=== PATIENT | female | born 1990 | race Caucasian/White ===

== ENCOUNTER → 2019-12-31 16:37 | Outpatient (BNVA) | payer MEDICAID, SELFPAY | PROVIDERS: Family Provider Nurse Practitioner Family; Visit Provider Nurse Practitioner | DX: R50.9 Fever, unspecified (principal); N39.0 Urinary tract infection, site not specified | CPT/HCPCS: 80053; 81000 ==

== ENCOUNTER 2020-01-01 08:42 | Emergency (ER) | payer MEDICAID, SELFPAY ==
[2020-01-01 08:45] VITALS: BP 139/88; PULSE 113; RESP 18; TEMP 37.2; O2SAT 99; BMI 35.4
--- NOTE | 2020-01-01 08:56 | W.ED.GENADLT ---
HPI - General Adult General: Chief complaint: Nausea/Vomiting/Diarrhea Stated complaint: fever, n/v Time Seen by Provider: 01/01/20 08:44 Source: patient Mode of arrival: ambulatory Limitations: no limitations History of Present Illness: HPI narrative: Patient is a 29-year-old female who presents to ED today with a complaint of a headache, nausea and vomiting that began yesterday, body aches, difficulty with urination, dysuria, and fevers of up to 101.5. Having very mild abdominal pain. Symptoms initially began on Sunday. She was apparently seen at urgent care yesterday and diagnosed with UTI and placed on Macrobid. Patient states symptoms have not improved. She is reporting normal bowel movements. She is not having a rash. No recent tick bites. No sick contacts. Onset (ago): day(s) Associated symptoms: Reports headache(s) and nausea; Deny chest pain, dyspnea, rash, palpitations, syncope or vomiting Review of Systems Const: Reports: fever(s), body aches and change in appetite; Denies: change in weight Eyes: Denies: change in vision, blurry vision, photophobia, floaters or seeing flashes ENMT: Denies: throat pain or odynophagia Card: Denies: chest pain, palpitations, irregular heart rhythm, edema, lightheadedness, syncope, pre-syncope or dyspnea on exertion Resp: Denies: dyspnea, productive cough or chest congestion GI: Reports: abdominal pain and nausea; Denies: vomiting, heartburn, diarrhea, change in bowel habits, change in stool character, hematochezia, melena or white/light colored stool : Reports: flank pain, difficulty voiding, dysuria, urinary frequency and urinary urgency; Denies: urinary hesitancy, dribbling, urinary incontinence, hematuria, vaginal odor, vaginal bleeding or vaginal discharge Musc: Denies: neck pain, back pain, extremity pain, extremity swelling, joint pain or joint swelling Skin/Breast: Denies: rash Neuro: Reports: headache(s); Denies: numbness in extremities, weakness in extremities or sensory changes PFS ED PFSH: Social History Smoking and tobacco status: never smoked Female Reproductive History: Date of last menstrual period: 12/08/19 Physical Exam Const: COMMON NORMALS: no acute distress, patient oriented x3, no limitations and alert NUTRITIONAL APPEARANCE: obese HENMT: COMMON NORMALS: normocephalic and atraumatic HEAD & SCALP: normocephalic and atraumatic Resp: COMMON NORMALS: normal respiratory effort and clear to auscultation bilaterally AUSCULTATION: clear to auscultation bilaterally Cardio: COMMON NORMALS: regular rate and regular rhythm RATE: regular rate RHYTHM: regular rhythm GI: COMMON NORMALS: Normal to inspection, nondistended, normoactive bowel sounds present, Soft to palpation, No hepatosplenomegaly present and no masses PALPATION: Yes Soft to palpation, Yes Tenderness to palpation present (GI) (mild diffusely; non-surgical abdominal exam) and Yes No hepatosplenomegaly present : BLADDER/KIDNEY EXAM: Yes CVA tenderness (very mild R) Back/Pelvis: COMMON NORMALS: thoracic and lumbar spine normal to inspection, no thoracic nor lumbar tenderness and thoraco-lumbar ROM normal GENERAL BACK: Yes CVA tenderness (very mild R) Extremity: COMMON NORMALS: normal to inspection GENERAL: Yes normal exam except as noted Neuro: COMMON NORMALS: patient oriented x3 SENSORIUM/ORIENTATION: Yes alert Skin: COMMON NORMALS: no rashes or lesions noted GENERAL SKIN EXAM: no rashes or lesions noted Course Reevaluation(s): Reevaluation #1: severe delay in pts care as labs were ordered at 8:55 and by 10:25 they still have not been drawn yet. Vital Signs: Vital signs: Vital Signs Temperature 97.8 F 01/01/20 12:42 Pulse Rate 104 H 01/01/20 13:04 Respiratory Rate 18 01/01/20 12:42 Blood Pressure 112/84 01/01/20 13:04 Pulse Oximetry 94 01/01/20 13:04 MDM - General Adult MDM Narrative: Medical decision making narrative: Patient here with several nonspecific complaints including headache, body aches, fevers, nausea/vomiting, and some possible UTI-like symptoms. Patient clinically appears well. She has a normal physical examination apart from some mild diffuse abdominal pain. Her abdomen is nonsurgical. Labs revealing leukopenia, thrombocytopenia, mild hypokalemia, and elevated liver enzymes. I did elect for a gallbladder ultrasound that was normal. Patient's UA is not overly suspicious for a UTI as she is negative nitrates, negative leuks, and only has 0-4 WBCs and 1+ bacteria-will culture. She does tell me she recently finished a course of Bactrim for a spider bite to her left hip. Patient did have pictures on her phone of the bite. It did look suspicious for a spider bite although I question whether this could have been an erythema migrans lesion and now patient is having tickborne illness symptoms. I am going to go ahead and place her on doxycycline. Recommend close observation of her abdominal pain specifically if the pain worsens and localizes to her right upper quadrant. I will go ahead and obtain COVID testing due to nonspecific symptoms and fevers. Lab Data: Labs: Lab Results 01/01/20 01/01/20 01/01/20 Range/Units 09:00 10:45 10:45 WBC 2.9 L (4.0-10.0) 10^3/ uL RBC 4.22 (4.1-5.3) 10^6/u L Hgb 12.2 (11.5-15.3) g/dL Hct 38.2 (37.0-47.0) % MCV 90.5 (81-99) fL MCH 28.9 (28.0-34.0) pg MCHC 31.9 (30.0-36.0) g/dL RDW 13.6 (12.1-15.1) % Plt Count 76 L (130-400) 10^3/c mm MPV 10.9 H (7.4-10.4) fL Neut % (Auto) 63.0 % Lymph % (Auto) 25.2 % Chambers % (Auto) 8.8 % Eos % (Auto) 0.3 % Baso % (Auto) 0.7 % Neut # (Auto) 1.85 (1.8-7.7) 10^3/u L Lymph # (Auto) 0.7 L (0.8-4.8) 10^3/u L Chambers # (Auto) 0.3 (0.2-0.9) 10^3/u L Eos # (Auto) 0.0 (0.0-0.8) 10^3/u L Baso # (Auto) 0.0 (0.0-0.1) 10^3/u L Nucleated RBC % (a uto) 0 % Nucleated RBCs # 0.0 /100WBC Sodium 136 (136-145) mmol/L Potassium 3.4 L (3.5-5.1) mmol/L Chloride 105 (98-107) mmol/L Carbon Dioxide 20 L (22-29) mmol/L Anion Gap 14.4 (5-19) BUN 9 (6-20) mg/dL Creatinine 0.8 (0.5-0.9) mg/dL GFR Calculation 86.0 L (90-130) mL/min Glucose 102 (65-115) mg/dL Calculated Osmolal ity 278 L (285-295) mOsm/k g Lactic Acid (0.5-2.2) mmol/L Calcium 8.0 L (8.5-10.5) mg/dL Total Bilirubin 0.6 (0.15-1.2) mg/dL AST 64 H (0-32) U/L ALT 77 H (0-33) U/L Alkaline Phosphata se 145 H (35-105) IU/L Total Protein 7.0 (6.6-8.7) g/dL Albumin 3.5 (3.5-5.2) g/dL Globulin 3.5 (1.3-4.6) g/dL Lipase 15 (13-60) U/L HCG, Qual (Negative) Urine Color Dark yellow (Yellow) Urine Appearance Sl hazy (CLEAR) Urine pH 5 (5-7) Ur Specific Gravit y 1.015 (1.005-1.030) Urine Protein 1+ H (Negative) Urine Glucose (UA) Norm (Normal) Urine Ketones 1+ H (Negative) Urine Blood 2+ H (Negative) Urine Nitrate Negative (Negative) Urine Bilirubin 1+ H (NEGATIVE) Urine Urobilinogen 1 H (Negative) mg/dL Ur Leukocyte Mary ase Negative (Negative) Urine RBC 0-4 H (0-2) /hpf Urine WBC 0-4 H (0-5) /hpf Ur Squamous Epith Cells 15-25 H (0-5) Amorphous Sediment Not Reportable Urine Bacteria 1+ H (NONE) 01/01/20 01/01/20 Range/Units 10:45 12:00 WBC (4.0-10.0) 10^3/ uL RBC (4.1-5.3) 10^6/u L Hgb (11.5-15.3) g/dL Hct (37.0-47.0) % MCV (81-99) fL MCH (28.0-34.0) pg MCHC (30.0-36.0) g/dL RDW (12.1-15.1) % Plt Count (130-400) 10^3/c mm MPV (7.4-10.4) fL Neut % (Auto) % Lymph % (Auto) % Chambers % (Auto) % Eos % (Auto) % Baso % (Auto) % Neut # (Auto) (1.8-7.7) 10^3/u L Lymph # (Auto) (0.8-4.8) 10^3/u L Chambers # (Auto) (0.2-0.9) 10^3/u L Eos # (Auto) (0.0-0.8) 10^3/u L Baso # (Auto) (0.0-0.1) 10^3/u L Nucleated RBC % (a uto) % Nucleated RBCs # /100WBC Sodium (136-145) mmol/L Potassium (3.5-5.1) mmol/L Chloride (98-107) mmol/L Carbon Dioxide (22-29) mmol/L Anion Gap (5-19) BUN (6-20) mg/dL Creatinine (0.5-0.9) mg/dL GFR Calculation (90-130) mL/min Glucose (65-115) mg/dL Calculated Osmolal ity (285-295) mOsm/k g Lactic Acid 2.3 H (0.5-2.2) mmol/L Calcium (8.5-10.5) mg/dL Total Bilirubin (0.15-1.2) mg/dL AST (0-32) U/L ALT (0-33) U/L Alkaline Phosphata se (35-105) IU/L Total Protein (6.6-8.7) g/dL Albumin (3.5-5.2) g/dL Globulin (1.3-4.6) g/dL Lipase (13-60) U/L HCG, Qual Negative (Negative) Urine Color (Yellow) Urine Appearance (CLEAR) Urine pH (5-7) Ur Specific Gravit y (1.005-1.030) Urine Protein (Negative) Urine Glucose (UA) (Normal) Urine Ketones (Negative) Urine Blood (Negative) Urine Nitrate (Negative) Urine Bilirubin (NEGATIVE) Urine Urobilinogen (Negative) mg/dL Ur Leukocyte Mary ase (Negative) Urine RBC (0-2) /hpf Urine WBC (0-5) /hpf Ur Squamous Epith Cells (0-5) Amorphous Sediment Urine Bacteria (NONE) Imaging Data^: US gallbladder: Radiologist's impression: [address] [address] Ultrasound Report Signed Patient: Senia Domínguez Unit #: [id number] : 1990 Age/Sex: 29 / F ADM Date: 01/01/20 Loc: ER Room/Bed: Attending Dr: Ordering Provider/Ordering MD: Stephania Tee Date of Service: 01/01/20 Procedure(s): US gall bladder 92016 Accession Number(s): [id number] Report Number: [id number] WS: [id number] Gallbladder ultrasound, 01/01/2020 Clinical Data: abd pain; elevated LFTs Comparison: None. Findings: The gallbladder shows no sludge or stone. The wall measures 0.2 cm with no pericholecystic fluid. The common bile duct is 0.5 cm and there are no intrahepatic ductal abnormalities. Liver shows no cysts, masses or dilated intrahepatic ducts. The pancreas is not obscured by overlying bowel gas and no cyst, pseudocyst, or evidence of pancreatitis is noted. Right kidney measures 8.9 cm and no cyst, masses or hydronephrosis can be seen. The aorta and inferior vena cava show no vascular abnormalities. US/US gall bladder [id number] Impression: Negative gallbladder ultrasound. Dictated By: Charley Rivera MD Signed By: Charley Rivera MD Signed Date/Time: 01/01/20 1159 DD/ 1157 Discharge Plan Discharge Patient Disposition: Home Clinical Impression: Elevated LFTs, General ill feeling Condition: Stable Prescriptions: New doxycycline monohydrate 100 mg capsule 100 mg PO Q12H 10 Days Qty: 20 RF: 0 No Action sertraline [Zoloft] 100 mg tablet 100 mg PO DAILY RF: 0 nitrofurantoin monohyd/m-cryst [Macrobid] 100 mg capsule 100 mg PO Q12H 7 Days Qty: 14 RF: 0 ondansetron HCl 4 mg tablet 4 mg PO Q8H PRN (Reason: nausea and vomiting) Qty: 20 RF: 0 Tylenol Extra Strength 500 mg Tablet 1,000 mg PO PRN RF: 0 ibuprofen 200 mg Tablet 400 mg PO PRN RF: 0 Discharge Orders: Discharge Order (Routine); Ordered 01/01/20 Ordered By: Stephania Tee Referrals: [facility] [Other] Activity Restrictions/Additional Instructions: As discussed please quarantine until you get results of your COVID testing. Please follow-up with primary care in 3 to 5 days for reevaluation. As discussed your liver enzymes were elevated today. Her gallbladder ultrasound was normal however if you begin experiencing worsening abdominal pain specifically to your right upper abdomen you need to return to the emergency department for further evaluation. Discharge Date/Time: 01/01/20 13:04 Coding Level of Care Code ED [facility] [employer] [facility] for [facility] Osei Exam Comprehensive
[2020-01-01 09:19] VITALS: BP 112/84; PULSE 105; RESP 18; O2SAT 97
[2020-01-01] MEDS: sodium chloride 0.9% 1,000 ML 999 ML IV (09:38)
[2020-01-01 10:01] LABS: Protein Urine 1+ (Negative); Specific Gravity, Urine 1.015 (1.005-1.030); Urine Appearance SL Hazy (CLEAR); Urine Color Dark Yellow (Yellow); pH Urine 5 (5-7)
[2020-01-01 10:02] LABS: Add Urine Microscopic? YES; Bilirubin Urine 1+ (NEGATIVE); Blood Urine 2+ (Negative); Glucose Urine UA Norm (Normal); Ketones Urine 1+ (Negative); Leukocyte Esterase Urine Negative (Negative); Nitrate Urine Negative (Negative); Urobilinogen Urine 1 mg/dL (Negative)
[2020-01-01 10:03] LABS: RBC Urine 0-4 /hpf (0-2); Squamous Epithelial Cell Urine 15-25 (0-5); WBC Urine 0-4 /hpf (0-5)
[2020-01-01 10:04] LABS: Add Urine Culture? No; Bacteria Urine 1+
[2020-01-01 10:42] VITALS: BP 112/84; PULSE 104; RESP 18; O2SAT 99
[2020-01-01 10:54] LABS: Basophils % 0.7 %; Eosinophils % 0.3 %; Hematocrit 38.2 % (37.0-47.0); Hemoglobin 12.2 g/dL (11.5-15.3); Lymphocytes # 0.7 10^3/uL (0.8-4.8); Lymphocytes % 25.2 %; Mean Corpuscular HGB Conc 31.9 g/dL (30.0-36.0); Mean Corpuscular Hemoglobin 28.9 pg (28.0-34.0); Mean Corpuscular Volume 90.5 fL (81-99); Mean Platelet Volume 10.9 fL (7.4-10.4); Monocytes # 0.3 10^3/uL (0.2-0.9); Monocytes % 8.8 %; Neutrophils # 1.85 10^3/uL (1.8-7.7); Nucleated Red Blood Cells % 0 %; Platelet Count 76 10^3/cmm (130-400); Red Blood Count 4.22 10^6/uL (4.1-5.3); Red Cell Distribution Width 13.6 % (12.1-15.1); White Blood Count 2.9 10^3/uL (4.0-10.0)
[2020-01-01 11:02] LABS: HCG, Serum Qual Negative (Negative)
[2020-01-01 11:07] LABS: Alanine Aminotransferase 77 U/L (0-33); Albumin Level 3.5 g/dL (3.5-5.2); Alkaline Phosphatase 145 IU/L (35-105); Anion Gap 14.4 (5-19); Aspartate Amino Transferase 64 U/L (0-32); Blood Urea Nitrogen 9 mg/dL (6-20); Carbon Dioxide 20 mmol/L (22-29); Chloride 105 mmol/L (98-107); Globulin 3.5 g/dL (1.3-4.6); Glucose 102 mg/dL (65-115); Lipase 15 U/L (13-60); Osmolality Calculated 278 mOsm/kg (285-295); Potassium 3.4 mmol/L (3.5-5.1); Sodium 136 mmol/L (136-145); Total Bilirubin 0.6 mg/dL (0.15-1.2)
--- NOTE | 2020-01-01 11:09 | US_ITS ---
WS: [id number] Gallbladder ultrasound, 01/01/2020 Clinical Data: abd pain; elevated LFTs Comparison: None. Findings: The gallbladder shows no sludge or stone. The wall measures 0.2 cm with no pericholecystic fluid. The common bile duct is 0.5 cm and there are no intrahepatic ductal abnormalities. Liver shows no cysts, masses or dilated intrahepatic ducts. The pancreas is not obscured by overlying bowel gas and no cyst, pseudocyst, or evidence of pancreati tis is noted. Right kidney measures 8.9 cm and no cyst, masses or hydronephrosis can be seen. The aorta and inferior vena cava show no vascular abnormalities. US/US gall bladder [id number] Impression: Negative gallbladder ultrasound.
[2020-01-01 11:11] LABS: Slide Review Slide Review Perform
[2020-01-01 12:22] LABS: Lactic Sepsis W/Reflex 2.3 mmol/L (0.5-2.2)
[2020-01-01 12:42] VITALS: BP 112/84; PULSE 107; RESP 18; TEMP 36.6; O2SAT 94
--- NOTE | 2020-01-01 12:45 | PC.NURSE ---
Covid swab completed and sent to lab.
[2020-01-01 13:04] VITALS: BP 112/84; PULSE 104; O2SAT 94
[2020-01-02 12:59] LABS: Lyme AB Screen <0.90 index
[2020-01-02 19:39] LABS: Quest SARS-CoV-2 RNA NOT DETECTED (NOT DETECTED)
[2020-01-03 17:30] LABS: RMSF IGG NOT DETECTED; RMSF IGM NOT DETECTED
[2020-01-05 17:24] LABS: E. Chaffeensis AB IGG <1:64; E. Chaffeensis AB IGM <1:20
== END 2020-01-01 13:04 | disposition home or self-care (01) ==
PROVIDERS: Emergency Provider Physician Assistant
DX: R79.89 Other specified abnormal findings of blood chemistry (principal)
CPT/HCPCS: 12345; 36415; 76705; 80053; 81001; 81003; 83605; 83690; 84703; 85025; 86618; 86666; 86757; 87635; 96360; 99283; J7030

== ENCOUNTER → 2020-02-01 12:49 | Outpatient (BNVA) | payer MEDICAID, SELFPAY | PROVIDERS: Visit Provider Nurse Practitioner Family | DX: N39.0 Urinary tract infection, site not specified (principal); R31.9 Hematuria, unspecified | CPT/HCPCS: 81000 ==

== ENCOUNTER → 2020-07-22 13:07 | Outpatient (BNVA) | payer BC, MEDICAID, SELFPAY | PROVIDERS: Visit Provider Obstetrics & Gynecology | DX: Z32.01 Encounter for pregnancy test, result positive (principal) | CPT/HCPCS: 84702 ==

== ENCOUNTER → 2022-12-22 14:00 | Outpatient (BNVA) | payer BC, SELFPAY | PROVIDERS: Visit Provider Nurse Practitioner Women's Health | DX: Z12.4 Encounter for screening for malignant neoplasm of cervix (principal) | CPT/HCPCS: 87624 ==